=== PATIENT | male | born 1980 | race American Indian/Alaskan Native ===

== ENCOUNTER 2019-03-09 06:58 | Emergency (ER) | payer SELFPAY ==
[2019-03-09 07:13] VITALS: BP 123/82
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
[2019-03-09] MEDS ORDERED: TORADOL IM ONE (09:55)
[2019-03-09] MEDS ORDERED: DECADRON IM ONE (09:55)
== END 2019-03-09 10:32 | disposition home or self-care (01) ==
LOC: ED 06:58
DX: J02.9 Acute pharyngitis, unspecified (principal)
CPT/HCPCS: 87116; 87430; 96372; 99283; J1100